=== PATIENT | male | born 1985 | race Caucasian/White ===

== ENCOUNTER 2025-01-13 18:25 | Emergency (ER) | payer MEDICAID, SELFPAY ==
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
[2025-01-13 19:00] VITALS: BP 119/73; PULSE 107; RESP 20; TEMP 36.7; O2SAT 97
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
== END 2025-01-13 21:34 | disposition left against medical advice (07) ==
LOC: SERX 21:35
PROVIDERS: Emergency Provider Emergency Medicine
DX: S00.31XA Abrasion of nose, initial encounter (principal); S00.81XA Abrasion of other part of head, initial encounter; Y04.0XXA Assault by unarmed brawl or fight, initial encounter; Z53.29 Procedure and treatment not carried out because of patient's decision for other reasons
CPT/HCPCS: 99281